=== PATIENT | male | born 1955 | race Caucasian/White ===

== ENCOUNTER 2017-03-01 01:36 | Emergency (ER) | payer MEDICARE, OTHER ==
[~2017-03-01] VITALS: Ht 170.2 cm; Wt 86.5 kg
[~2017-03-01 01:36] MED LIST: ACTOS30 MG OR; AMLODIPINE10 MG OR; ATENOLOL25 MG OR; ATENOLOL50 MG OR; BACTRIM DS1 TAB PO; BAYER ASPIRIN325 MG PO; CEPHALEXIN500 MG PO; CLONIDINE0.1 MG TD; COUMADIN2.5 MG PO; DIOVAN160 MG PO; DIOVAN320 MG OR; ECOTRIN325 MG OR; ENALAPRIL10 MG PO; ENALAPRIL20 MG PO; FIBE1 OR; FLOMAX0.4 M1 PO; HUMULIN 70/30 SC; LANTUS SC; LANTUS100 MG/ML SC; LANTUS100 UNIT/M SC; LASIX20 MG OR; LISINOPRIL10 MG OR; METFORMIN500 MG OR; METOPROL TAR100 MG OR; METOPROL TAR25 MG PO; METOPROLOL TAR100 MG PO; METOPROLOL100 M1 PO; MUPIROCIN2 % EX; NEXIUM40 M1 PO; NORVASC PO; NORVASC2.5 M1 PO; NORVASC5 MG PO; PERCOCET 5/325M1 TAB PO; RENAGEL 800MG800 MG OR; RENAGEL800 MG PO; RENO PO; SENSIPAR30 MG OR; SENSIPAR30 MG PO; SULAR20 MG OR; TENORMIN OR; VASOTEC20 MG PO
[2017-03-01] MEDS ORDERED: CORTISPORIN11 OT (03:11)
[2017-03-01] MEDS ORDERED: AMOXICILLIN500 MG PO (03:15)
[2017-03-01 03:20] VITALS: BP 192/94
== END 2017-03-01 03:25 | disposition home or self-care (01) ==
LOC: ED 01:36
DX: H60.93 Unspecified otitis externa, bilateral (principal); H61.23 Impacted cerumen, bilateral; I12.0 Hypertensive chronic kidney disease with stage 5 chronic kidney disease or end stage renal disease; E11.22 Type 2 diabetes mellitus with diabetic chronic kidney disease; N18.6 End stage renal disease; F17.220 Nicotine dependence, chewing tobacco, uncomplicated; Z99.2 Dependence on renal dialysis; Z79.4 Long term (current) use of insulin